=== PATIENT | female | born 1950 | race Two or more races ===

== ENCOUNTER → 2025-02-19 | Outpatient (CLI) | payer MEDICARE, SELFPAY ==
--- NOTE | 2025-02-19 09:30 | XR_ITS ---
Examination: Breast ultrasound, unilateral, left Date and time of exam: September 19, 2024, 0951 hours INDICATIONS: Family history, sister, breast cancer, left breast pain months Technique: Real-time lucero scale ultrasonographic imaging performed left breast including all 4 quadrants as well as nipple retroareolar and axillary region. Findings: 12:00 nodule 8 x 6 mm, circumscribed IMPRESSION: BI-RADS Category 3: Probably benign findings 1 additional 6-month left breast sonogram follow-up is needed to document stability of nodule described above
== END | disposition home or self-care (01) ==
LOC: CDIM 09:34
PROVIDERS: PCP Family Medicine; Referring Provider Registered Nurse; Visit Provider Registered Nurse
DX: N63.25 Unspecified lump in the left breast, overlapping quadrants (principal)
CPT/HCPCS: 76641